=== PATIENT | male | born 1985 | race Caucasian/White ===

== ENCOUNTER 2016-10-19 01:24 | Emergency (ER) | payer SELFPAY | END 2016-10-20 02:00 | disposition home or self-care (01) | LOC: ER 01:24 | DX: K61.1 Rectal abscess (principal); G25.81 Restless legs syndrome; Z79.899 Other long term (current) drug therapy; F17.290 Nicotine dependence, other tobacco product, uncomplicated | CPT/HCPCS: 99282 ==